=== PATIENT | female | born 1980 | race Caucasian/White ===

== ENCOUNTER 2017-06-11 21:19 | Inpatient (IN) | payer OTHER ==
[~2017-06-11] VITALS: Ht 177.8 cm; Wt 96.2 kg
[2017-06-14] MEDS ORDERED: fentaNYL CITR 100 MCG/2 ML AMP IVP PRN (06:35)
[2017-06-14] MEDS ORDERED: LIDOCAINE/SOD BICARB 8.4% SYR SC PRN (06:35)
[2017-06-14] MEDS ORDERED: FAMOTIDINE(*) 20MG/50ML PREMIX 50 ML IVPB PRN (06:35)
[2017-06-14] MEDS ORDERED: LIDOCAINE 1% LOCAL 300 MG/30ML INJ PRN (06:35)
[2017-06-14] MEDS ORDERED: METOCLOPRAMIDE 10 MG/2 ML SDV IVP PRN (06:35)
[2017-06-14] MEDS ORDERED: ceFAZolin(*) 2GM/D5W 50ML 50 ML IVPB PRN (06:35)
[2017-06-14] MEDS ORDERED: OXYTOCIN 30 UNIT/D5LR 500 ML 500 ML IV PRN (06:40)
[2017-06-14 07:15] VITALS: BP 142/83; Ht 177.8 cm; Wt 96.2 kg
[2017-06-14] MEDS ORDERED: PREN-127 PO (07:36)
[2017-06-14 08:06] LABS: PLATELET COUNT, AUTOMATED 249 K/uL (150-450)
[2017-06-14] MEDS: LR(*) 1000 ML BAG 1,000 ML IV PRN ×3 (08:41→19:35)
--- NOTE | 2017-06-14 09:58 | History & Physical ---
History of Present Illness EDC per LMP: Jun 11, 2017 Estimated Gestational Age: 40.3 Chief Complaint Induction History of Present Illness 36yo at 40w3d presents for IOL for AMA, GDMA1. She reports FM and some cramping. No VB/LOF. No preeclampsia symptoms. PNR reviewed. History Patient's Blood Type: B Positive Rubella Status: Immune Group B Strep Screen: Negative Obstetrical History: G1: 41wk , GDMA1 G2: 40wk G3: SAB G4: Present Past Medical History: PMH: Migraines PSH: None Allergies: Coded Allergies: No Known Drug Allergies (Unverified , 06/14/17) Med Rec Home Meds Reported Medications Vits W-Ca,Fe,Fa(<1MG) ( VITAMINS) 1 Each Tablet, 1 EACH PO DAILY, TAB 06/14/17 Review of Systems Constitutional: No Fever Neurological: No Syncope Eyes: No Vision Change Cardiovascular: No Chest Pain Respiratory: No Shortness of Breath, No Cough Gastrointestinal: No Nausea, No Vomiting, No Diarrhea Genitourinary: No Dysuria Musculoskeletal: No Pain Psychiatric: Depression Exam General Exam Vital Signs Vital Signs Date Time Temp Pulse Resp B/P (MAP) Pulse Ox O2 Delivery O2 Flow Rate FiO2 06/14/17 07:15 97.9 133 16 142/83 (102) 93 Room Air General Apperance: Alert/Awake/No Acute Distress Neuro: No Gross deficits Eyes: Normal Extraocular Movement & Vison Cardiovascular: Regular Rate and Rhythm Respiratory: No Respiratory Distress, Clear to Auscultation Abdomen: Gravid - Non-Tender : Normal Musculoskeletal: No Weakness/Pain Extremities: No Cyanosis,Clubbing or Edema Integumentary: Skin Intact without Lesions or Rash Psychological: Alert & Oriented X3, Appropriate Mood & Affect Cervical Dialation: 2 Cervical Effacement (%): 50 Cervical Consistency: Moderate Cervical Position: Mid Station: -2 Presentation: Vertex Uterine Contractions(Q min): 5 Uterine Contraction Strength: Mild UC Resting Tone: Soft Fetus FHT Category: I Medical Decision Making Data Points Result Diagram: 06/14/17 0746 Pre-Admit Course Medical Record Review: Yes VTE Prophylasis: Adult Deep Vein Thrombosis/Pulmonary: No Pharmacological Contraindicati: Pt at Low Risk for VTE Mechanical Contraindications: Pt at Low Risk for VTE Assessment and Plan Problems: (1) Gestational diabetes mellitus, class A1 Assessment & Plan: Pitocin protocol. GBS negative. (2) Advanced maternal age (AMA) in (3) 40 weeks gestation of TERRI PHELPS MD Jun 14, 2017 09:58
[2017-06-14] MEDS ORDERED: LIDOCAINE/PF 2% 200MG/10ML AMP 200 MG/10 ML AMPUL EPI PRN (11:30)
[2017-06-14] MEDS ORDERED: EPIDURAL KEYS XX PRN (11:30)
[2017-06-14] MEDS ORDERED: BUPIVACAINE 0.25% MPF INJ EPI PRN (11:30)
[2017-06-14] MEDS ORDERED: LIDO/EPI 2% MPF 1:200,000 20ML EPI PRN (11:30)
[2017-06-14] MEDS ORDERED: FENTANYL/ROPIVACAINE 100 ML BAG EPI PRN (11:30)
[2017-06-14] MEDS ORDERED: BUPIVACAINE 0.5% INJ 30ML VIAL EPI PRN (11:30)
[2017-06-14] MEDS ORDERED: fentaNYL CITR 100 MCG/2 ML AMP IT PRN (11:30)
--- NOTE | 2017-06-14 11:41 | Anesthesia OB Pre-Anes Eval ---
History of Present Illness Anesthesia Start Date: Jun 14, 2017 Anesthesia Start Time: 16:59 OB Anesthesia Diagnosis: induction - elective Current Complication: diabetes EDC: Jun 11, 2017 : 4 Para: 2 Pain Ratin Result Diagram: 06/14/17 0746 Height (Inches): 70.00 Weight (Pounds): 212 BMI Calculated: 30.42 Past Medical History Medical History: other (Poss Thyroid) Surgical History: no surgical history Previous Anesthesia: epidural Attended Childbirth Classes?: No Hx Anesthesia Reactions: No Hx Family Anesthesia Reaction: No Past Complications: diabetes Home Meds Reported Medications Vits W-Ca,Fe,Fa(<1MG) ( VITAMINS) 1 Each Tablet, 1 EACH PO DAILY, TAB 06/14/17 Allergies: Coded Allergies: No Known Drug Allergies (Unverified , 06/14/17) Anesthesia OB ROS Neurological: migraines/headaches Eyes ROS: other (glasses) ENT: Denies Tooth caps, Denies Loose teeth, Denies Chipped teeth, Denies Dentures, Denies Bridges, Denies Retainers, Denies Veneers, Denies Implants, Denies Tongue ring, Denies Other Airway Class: l Cardiovascular ROS: No edema, No arrhythmia, No other GI ROS: NPO, ice chips Last Solids Date: Jun 14, 2017 Last Solids Time: 17:00 ROS: No Herpes, No STD(s), No Liver Disease, No Renal Disease, No Other Endocrine ROS: gestational diabetes, thyroid disorder (previously told that she may have Thyroid problems) Musculoskeletal ROS: No low back pain, No low back injury, No scoliosis, No other ASA Classification: 2 Assessment and Plan Anesthesia Plan: CSE Assessment Epidural anesthesia risks, complications and benefits explained to patient's satisfaction for labor and vaginal delivery and/or section.Spinal block risks and benefits explained to patient's satisfaction.Epidural anesthesia risks, complications and benefits explained to patient's satisfaction for labor and vaginal delivery and/or section. Anesthesia Stop Day: Jun 14, 2017 Anesthesia Stop Time: 20:56 Epidural Catheter Removal: Removed Catheter Intact, Yes, Removed by: (Mickey Cross CRNA) Removal Date: Jun 14, 2017 Removal Time: 20:56 MICKEY CROSS CRNA Jun 14, 2017 11:41
--- NOTE | 2017-06-14 16:02 | Labor Progress Note ---
Labor Subjective Progress Notes Subjective Pt is feeling contractions, but not severe. Labor Objective Vital Signs Vital Signs Date Time Temp Pulse Resp B/P (MAP) Pulse Ox O2 Delivery O2 Flow Rate FiO2 06/14/17 07:15 97.9 133 16 142/83 (102) 93 Room Air Vaginal Discharge/Fluid?: Clear Fluid (after AROM) Cervical Dialation: 4 Cervical Effacement (%): 70 Cervical Consistency: Soft Cervical Position: Mid Station: -2 Presentation: Vertex Uterine Contractions(Q min): 3 Uterine Contraction Strength: Moderate UC Resting Tone: Soft Fetus FHT Category: I General Exam General Appearance: Alert/Awake/No Acute Distress Abdomen: Gravid - Non-Tender : Normal Extremities: No Cyanosis,Clubbing or Edema Integumentary: Skin Intact without Lesions or Rash Psychological: Alert & Oriented X3, Appropriate Mood & Affect Other Result Diagram: 06/14/17 0746 Assessment and Plan Problems: (1) Gestational diabetes mellitus, class A1 Assessment & Plan: AROM with clear fluid. Continue pitocin protocol. (2) Advanced maternal age (AMA) in (3) 40 weeks gestation of TERRI PHELPS MD Jun 14, 2017 16:02
--- NOTE | 2017-06-14 17:58 | Procedure Note ---
Anesthetic Placement Note Anesthesia Plan: CSE Permit for Anesthesia Signed: Yes Anesthesia Technique: Patient Sitting Anesthesia Prep: Chlorhexidine Interspace: L 4-5 Local Anesthetic: 1% Lidocaine Amount Local - cc's: 3 Anesthesia Needle: 17g Touhy/Schliff Anesthesia Attempts: 1 Loss of Resistance: Normal Saline Depth of LOS (cm): 6 Epidural Needle Placement: No CSF, No Blood, No Parasthesia Intrathecal Needle: 27 Gauge Pencan Cerebral Spinal Fluid: Yes, Clear Catheter Insertion (cm): 13 Catheter Type: Magdaleno - Spring Wound Epidural Dressing: Tegaderm, Tape Anesthesia Medications: Intrathecal Dose: mcg Fentanyl (25mcg) Epidural Test Dose: 1.5 Lido/Epi (1:200,000), Dose - mL (5ml), Time (1720), Negative Epidural Infusion: 0.2% Ropivicaine, With Fentanyl 2mcg/ml Epidural Pump Setting: Bolus Dose - mL (4), Lockout - Minutes (20), Maintenance Rate - mL/hr (8), Maximum per Hour - mL (2) Complications: None MICKEY CROSS ADVERTISING [employer] Jun 14, 2017 17:58
[2017-06-14] MEDS ORDERED: ONDANSETRON 4 MG/2 ML VIAL IVP PRN (18:20)
[2017-06-14] MEDS ORDERED: diphenhydrAMINE 25 MG CAP PO PRN (18:20)
[2017-06-14] MEDS ORDERED: APAP/HYDROCODONE 325/5 TAB PO PRN (20:50)
[2017-06-14] MEDS ORDERED: BENZOCAINE 20% 60 ML BTL TP PRN (20:50)
[2017-06-14] MEDS ORDERED: LANOLIN OINT 7 GM TUBE TP PRN (20:50)
[2017-06-14] MEDS ORDERED: MAGNESIUM HYDROXIDE* 30ML UDCP PO PRN (20:50)
[2017-06-14] MEDS ORDERED: HYDROCORTISONE 2.5% CR 30GM TB PR PRN (20:50)
--- NOTE | 2017-06-14 20:52 | OB Delivery Note ---
Delivery Note Vaginal Delivery Type: Spont. Vaginal Delivery Delivery Date: Jun 14, 2017 Delivery Time: 20:23 Estimated Gestational Age(wks): 40.3 Delivery Anesthesia: Epidural Sex: Male Apgars: 1 Minute (9), 5 Minute (9) Repair Needed: Laceration, 1st Degree Estimated Blood Loss: 100 Notes: Presented for IOL planned. Pitocin induction and AROM at 1555. Advanced to 4 cm by 1555 and by 1945 6 cm. Pt suddenly went to complete by 2011. Pushed while and stabilized perineum. Shoulders delivered spontaneous and without complication. Two simple interrupted stitches of 2-0 chromic done for repair. No complications. Hand Engraver in Attendence: No Copies to: KYRA TIRADO MD, TRAVIS MD Jun 14, 2017 20:52
[2017-06-14] MEDS: IBUPROFEN 800 MG TAB PO SCH (22:52)
[2017-06-14] MEDS: DOCUSATE CALCIUM 240 MG CAP PO SCH (22:53)
[2017-06-14] MEDS: GLYCERIN/WITCH HAZEL LEAF 1 PK TP PRN (22:53)
[2017-06-14 23:10] VITALS: BP 144/66
[2017-06-15] MEDS: ACETAMINOPHEN 325 MG TAB PO PRN ×4 (01:48→23:56)
[2017-06-15 01:50] VITALS: BP 123/62
[2017-06-15 04:10] VITALS: BP 126/62
[2017-06-15] MEDS: IBUPROFEN 800 MG TAB PO SCH ×3 (06:00→22:06)
--- NOTE | 2017-06-15 08:28 | OB/GYN Progress Note ---
OB Subjective Progress Notes Subjective Pain controlled, Tolerating diet and activity. Baby . Normal lochia. GI: POS Flatus, NEG Nausea, NEG Vomiting : Voiding Well Pain: Mild OB Objective Physical Exam Vital Signs Date Time Temp Pulse Resp B/P (MAP) Pulse Ox O2 Delivery O2 Flow Rate FiO2 06/15/17 04:10 97.7 83 16 126/62 (83) Room Air 06/14/17 07:15 93 General Appearance: Alert/Awake/No Acute Distress Neurological: No Gross deficits Eyes: Normal Extraocular Movement & Vison Cardiovascular: Regular Rate and Rhythm Respiratory: No Respiratory Distress, Clear to Auscultation Abdomen: Fundus Firm : Normal Extremities: No Cyanosis,Clubbing or Edema, No Edema Integumentary: Skin Intact without Lesions or Rash Psychological: Alert & Oriented X3, Appropriate Mood & Affect Result Diagram: 06/15/17 0543 Assessment and Plan Problems: (1) Gestational diabetes mellitus, class A1 (2) Advanced maternal age (AMA) in (3) 40 weeks gestation of (4) care following vaginal delivery Assessment & Plan: Pain controlled, Tolerating diet and activity. Baby . Normal lochia. LASHELL HOWARD MD Jun 15, 2017 08:28
[2017-06-15] MEDS: DOCUSATE CALCIUM 240 MG CAP PO SCH ×2 (08:43→22:06)
[2017-06-15] MEDS ORDERED: INFLUENZA VIRUS VAC 0.5 ML SYR IM ONLY ONE (09:00)
[2017-06-15] MEDS ORDERED: MEASLES,MUMP,RUBELLA VAC 0.5ML SUBQ ONE (09:00)
[2017-06-15] MEDS ORDERED: DIPHTH/TETANUS/ACEL. PERTUSSIS IM ONLY ONE (09:00)
[2017-06-15] MEDS ORDERED: HYDR2TAB4 PO (09:02)
[2017-06-15] MEDS ORDERED: IBUP800T37 PO (09:02)
--- NOTE | 2017-06-15 09:04 | OB/GYN Discharge Summary ---
Discharge Summary Reason for Hosp/Final Diag: (1) Gestational diabetes mellitus, class A1 (2) Advanced maternal age (AMA) in (3) 40 weeks gestation of (4) care following vaginal delivery Hospital Course & Plan: vag delivery on day 1, Pain controlled, Tolerating diet and activity. Baby . Normal lochia. Lates Vital Signs Vital Signs Date Time Temp Pulse Resp B/P (MAP) Pulse Ox O2 Delivery O2 Flow Rate FiO2 06/15/17 04:10 97.7 83 16 126/62 (83) Room Air 06/14/17 07:15 93 Weight (Pounds): 212 Result Diagram: 06/15/17 0543 Condition: Improved Discharge: Home, Self Senior Care Meds Active Scripts Ibuprofen (IBUPROFEN) 800 Mg Tablet, 1 TAB PO Q8H, #30 TAB 0 Refills Take with food every 8 hours. Prov:LASHELL HOWARD MD 06/15/17 Hydromorphone Hcl (HYDROMORPHONE HCL) 2 Mg Tablet, 2-4 MG PO Q4H for PAIN, #20 TAB 0 Refills Prov:LASHELL HOWARD MD 06/15/17 Reported Medications Vits W-Ca,Fe,Fa(<1MG) ( VITAMINS) 1 Each Tablet, 1 EACH PO DAILY, TAB 06/14/17 Follow up with: Dr. Vernon [phone] Follow up in: 6 wks PP or PO Discharge Diet: As Tolerates Discharge Activity: Pelvic Rest Copies to: LASHELL HOWARD MD, JOHN MD Jun 15, 2017 09:04
[2017-06-15 09:15] VITALS: BP 123/67
[2017-06-15 15:10] VITALS: BP 125/68
--- NOTE | 2017-06-15 16:29 | Anesthesia Post Eval Note ---
Anesthesia Post Eval Note Stable and doing well. Pt able to participate in Eval: Yes Cardiovascular Status: Satisfactory Respiratory Status: Satisfactory Pain Managment: Satisfactory PO Nausea/Vomiting: Satisfactory Temperature Management: Satisfactory Mental Status: Satisfactory, Alert, Oriented X3 Post-Op Hydration Status: Satisfactory, Tolerating PO Well, Voiding w/o Difficulty Anesthesia Type: CSE Anesthesia Tolerance: Well MICKEY CROSS CRNA Jun 15, 2017 16:29
[2017-06-15 20:00] VITALS: BP 110/80
[2017-06-15 23:30] VITALS: BP 120/67
[2017-06-16 03:50] VITALS: BP 115/65
[2017-06-16] MEDS: IBUPROFEN 800 MG TAB PO SCH (07:30)
--- NOTE | 2017-06-16 07:34 | OB/GYN Progress Note ---
OB Subjective Progress Notes Subjective Doing well. Pain controlled and ambulating well. Voiding well and bleeding light. 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
[2017-06-16] MEDS: GLYCERIN/WITCH HAZEL LEAF 1 PK TP PRN (07:42)
[2017-06-16] MEDS: DOCUSATE CALCIUM 240 MG CAP PO SCH (09:30)
== END 2017-06-16 10:30 | disposition home or self-care (01) | DRG 775 ==
LOC: OB 06-14 06:30
PROVIDERS: ADMIT Obstetrics & Gynecology; ATTEND Obstetrics & Gynecology
PROC: 10E0XZZ Delivery of Products of Conception, External Approach (ICD-10-PCS; principal; 2017-06-14)
PROC: 10907ZC Drainage of Amniotic Fluid, Therapeutic from Products of Conception, Via Natural or Artificial Opening (ICD-10-PCS; 2017-06-14)
PROC: 0HQ9XZZ Repair Perineum Skin, External Approach (ICD-10-PCS; 2017-06-14)
PROC: 3E033VJ Introduction of Other Hormone into Peripheral Vein, Percutaneous Approach (ICD-10-PCS; 2017-06-14)
DX: O24.420 Gestational diabetes mellitus in childbirth, diet controlled (principal); O70.0 First degree perineal laceration during delivery; Z37.0 Single live birth; Z3A.40 40 weeks gestation of pregnancy
CPT/HCPCS: 36415; 36416; 82948; 85025; 85027; 86850; 86900; 86901; J2590; J3010; J7120; S0020

== ENCOUNTER 2018-09-16 14:30 | Emergency (ER) | payer OTHER ==
[2017-06-14 07:15] VITALS: BMI 30.4
[~2018-09-16 14:30] MED LIST: FLU60VIA41 IM; HYDR2TAB4 PO; IBUP800T37 PO; PREN-127 PO
[2018-09-16] MEDS ORDERED: NS(*) 0.9% 1000 ML BAG 1,000 ML IV ONE (14:55)
[2018-09-16] MEDS ORDERED: METOCLOPRAMIDE 10 MG/2 ML SDV IVP ONE (14:55)
[2018-09-16] MEDS ORDERED: diphenhydrAMINE 50 MG/ML VIAL IVP ONE (14:55)
[2018-09-16] MEDS ORDERED: KETOROLAC 15 MG/ML VIAL IVP ONE (14:55)
--- NOTE | 2018-09-16 15:03 | ER Report ---
History and Physical Time Seen By MD: 13:45 Hx. of Stated Complaint: pt has had migraine since 3am. has taken immatrex and zofran. pt reports she keeps throwing up. states migraine is on both sides, normally when she gets migraines the pain is on one side. HPI/ROS CHIEF COMPLAINT: Headache HISTORY OF PRESENT ILLNESS: 37-year-old female presents with headache, woke up at 3 AM with frontal headache right greater than left, similar to though more severe than her typical migraines. Pain began and feels somewhat similar to her migraines. Migraines are typically unilateral and this is bifrontal. Patient has typical photophobia and vomiting. However, patient has been vomiting more than normal, has had multiple episodes of loose stool, and has not had relief with Zofran or Imitrex. No new weakness, fever, chills, neck pain, chest pain, difficulty breathing. REVIEW OF SYSTEMS: Constitutional: No fever, no chills. Eyes: photophobia ENT: No sore throat. Cardiovascular: No chest pain, no palpitations. Respiratory: No cough, no shortness of breath. Gastrointestinal: above Genitourinary: no dysuria Musculoskeletal: No back pain. Skin: No rashes. Neurological: above Remainder of the 14 system rev: Yes Allergies: Coded Allergies: No Known Drug Allergies (Unverified , 06/14/17) Home Meds Active Scripts Ibuprofen (IBUPROFEN) 800 Mg Tablet, 1 TAB PO Q8H, #30 TAB 0 Refills Take with food every 8 hours. Prov:LASHELL HOWARD MD 06/15/17 Hydromorphone Hcl (HYDROMORPHONE HCL) 2 Mg Tablet, 2-4 MG PO Q4H for PAIN, #20 TAB 0 Refills Prov:LASHELL HOWARD MD 06/15/17 Reported Medications Vits W-Ca,Fe,Fa(<1MG) ( VITAMINS) 1 Each Tablet, 1 EACH PO DAILY, TAB 06/14/17 Reviewed Nurses Notes: Yes Hx Smoking: No Smoking Status: Never Smoker Exposure to Second Hand Smoke?: No Constitutional Vital Sign - Last 24 Hours 09/16/18 14:43 Temp 98.2 Pulse 107 Resp 16 B/P (MAP) 152/89 Pulse Ox 91 O2 Delivery Room Air Physical Exam General Appearance: The patient is alert, has no immediate need for airway protection and no signs of toxicity. Patient in dark room appears uncomfortable though not toxic. Eyes: Pupils equal and round no pallor or injection. No nystagmus ENT, Mouth: Mucous membranes are moist. Respiratory: There are no retractions, lungs are clear to auscultation. Cardiovascular: Regular rate and rhythm. no m/r/g Neurological: alert, oriented x 3, moves all ext, no gross focal defecits Skin: Warm and dry, no rashes. Musculoskeletal: Neck is supple non tender. Extremities are nontender, nonswollen and have full range of motion. DIFFERENTIAL DIAGNOSIS: After history and physical exam differential diagnosis was considered for subarachnoid hemorrhage, intracranial hemorrhage, meningitis, encephalitis, cavernous sinus thrombosis, or other emergent etiology Medical Decision Making Data Points Laboratory Hematology Test 09/16/18 15:08 Human Chorionic Gonadotropin, Qual Negative (NEGATIVE) Chemistry Test 09/16/18 15:08 Human Chorionic Gonadotropin, Qual Negative (NEGATIVE) ED Course/Re-evaluation ED Course 37 f presents with johnson she states is a 'severe migraine'; similar in feeling to others, though pain is worse. No new/diff features. Considered sah though low likelihood; not sudden onset, thunderclap, or with other neurologic features. Exam nonfocal. Pt significantly improved on reassessment, smiling, comfortable. Nl ambulation, tolerates po. As she had just finished steroid course 2 d ago, possible bounceback johnson from steroid w/d; will admin decadron po and d/c with SRP's. Pt is very comfortable with this plan. Decision to Disposition Date: Sep 16, 2018 Decision to Disposition Time: 16:31 Depart Departure Latest Vital Signs Vital Signs Date Time Temp Pulse Resp B/P (MAP) Pulse Ox O2 Delivery O2 Flow Rate FiO2 09/16/18 14:43 98.2 107 16 152/89 91 Room Air Impression: Primary Impression: Headache Condition: Improved Disposition: HOME OR SELF-CARE Patient Instructions: Acute Headache (ED) Additional Instructions: Please return immediately for new, concerning features, not tolerating fluids, weakness, or any concerns. Follow up with your primary doctor for re-evaluation. Problem Qualifiers Primary Impression: Headache Headache type: unspecified Headache chronicity pattern: acute headache Intractability: not intractable Qualified Codes: R51 - Headache SABINA MARVIN MD Sep 16, 2018 15:03
[2018-09-16 16:00] VITALS: BP 165/95
[2018-09-16] MEDS ORDERED: DEXAMETHASONE 4 MG TAB PO ONE (16:35)
== END 2018-09-16 16:48 | disposition home or self-care (01) ==
LOC: ER 14:35
DX: R51 Headache (principal)
CPT/HCPCS: 84703; 96361; 96374; 96375; 99284; J1200; J1885; J2765; J7030; J8540

== ENCOUNTER → 2018-09-27 | Outpatient (CLI) | payer OTHER ==
[2017-06-14 07:15] VITALS: BMI 30.4
[2018-09-27 09:23] LABS: PLATELET COUNT, AUTOMATED 314 K/uL (150-450)
== END ==
LOC: LAB 08:40
PROVIDERS: ATTEND Allergy & Immunology
DX: L50.1 Idiopathic urticaria (principal)
CPT/HCPCS: 36415; 83520; 84436; 84443; 85025; 86003; 86038; 88184; 88185